=== PATIENT | female | born 1965 | race Caucasian/White ===

== ENCOUNTER 2020-09-05 17:19 | Emergency (ER) | payer OTHER ==
[~2020-09-05] VITALS: Ht 147.3 cm; Wt 68.0 kg
[2020-09-05] MEDS ORDERED: CEPHALEXIN500 M1 PO (18:13)
== END 2020-09-05 18:21 | disposition home or self-care (01) ==
LOC: ED 17:19
DX: S90.851A Superficial foreign body, right foot, initial encounter (principal); X58.XXXA Exposure to other specified factors, initial encounter; Y93.89 Activity, other specified; Y92.89 Other specified places as the place of occurrence of the external cause; Y99.8 Other external cause status

== ENCOUNTER 2025-06-10 23:50 | Emergency (ER) | payer OTHER ==
[~2025-06-10] VITALS: Ht 147.3 cm; Wt 65.0 kg
[~2025-06-10 23:50] MED LIST: CEPHALEXIN500 M1 PO
[2025-06-11] MEDS ORDERED: Ondansetron Hydrochloride 4 MG/2 ML VIAL IV ONE (00:25)
[2025-06-11 00:36] LABS: BASO # 0.0 10*3/uL (0.0-0.1); BASO % 0.4 % (0.0-1.0); EOS # 0.1 10*3/uL (0.0-0.4); EOS % 1.0 % (1.0-4.0); MEAN CELL VOLUME 97.7 fl (81.0-99.0); MEAN CORPUSCULAR HGB 31.4 pg (27.0-31.0); MEAN PLATELET VOLUME 10.3 fl (9.6-12.3); MONO # 0.6 10*3/uL (0.1-1.0); MONO % 8.5 % (3.0-9.0); NEUT # 4.8 10*3/uL (2.3-7.9); NEUT % 70.4 % (47.0-73.0); NUCLEATED RED BLOOD CELL 0.0 % (0.0-0.0); NUCLEATED RED BLOOD CELL 0.0 10*3/uL (0.0-0.0); PLATELET COUNT AUTOMATED 170 10*3/uL (130-400); RED CELL DISTRI WIDTH 11.9 % (0-14.5)
[2025-06-11 00:55] LABS: BUN 11 mg/dl (9-23); SGPT/ALT 15 U/L (5-49)
[2025-06-11 01:20] LABS: BILIRUBIN Negative (Negative); BLOOD Trace-Lysed (Negative); CLARITY Clear (Clear); COLOR Yellow (Yellow); KETONE 2+ (Negative); LEUKO ESTERASE 1+ (Negative); NITRITE Negative (Negative); PH 6.5 (4.5-8.0); SPECIFIC GRAVITY 1.025 (1.001-1.030); UROBILINOGEN 1.0 E.U./dl (0.0-1.0)
[2025-06-11] MEDS ORDERED: Potassium Bicarbonate/Potass 25 MEQ TAB PO ONE (01:25)
[2025-06-11 01:35] LABS: BACTERIA 1+; EPITHELIAL CELLS 16-20; MUCOUS 3+
[2025-06-11] MEDS ORDERED: Ondansetron4 MG PO (01:44)
== END 2025-06-11 02:02 | disposition home or self-care (01) ==
LOC: ED 23:50
PROVIDERS: Emergency Medicine
DX: B34.9 Viral infection, unspecified (principal); J06.9 Acute upper respiratory infection, unspecified; R10.9 Unspecified abdominal pain; R11.0 Nausea; Z20.822 Contact with and (suspected) exposure to COVID-19

== ENCOUNTER 2025-08-13 21:02 | Emergency (ER) | payer OTHER ==
[~2025-08-13] VITALS: Ht 165.1 cm; Wt 72.6 kg
[~2025-08-13 21:02] MED LIST changes: +Ondansetron4 MG PO
[2025-08-13] MEDS ORDERED: IBUPROFEN 800 MG TAB PO ONE (22:10)
[2025-08-13] MEDS ORDERED: Tdap Vaccine 0.5 ML SYR (Adult Vaccine) IM ONE (22:20)
== END 2025-08-13 22:38 | disposition home or self-care (01) ==
LOC: ED 21:02
DX: S82.61XA Displaced fracture of lateral malleolus of right fibula, initial encounter for closed fracture (principal); W19.XXXA Unspecified fall, initial encounter; Y93.01 Activity, walking, marching and hiking; Y92.89 Other specified places as the place of occurrence of the external cause; Y99.8 Other external cause status